=== PATIENT | male | born 1980 | race African-American/Black ===

== ENCOUNTER 2021-09-13 20:50 | Emergency (ER) | payer SELFPAY ==
[~2021-09-13] VITALS: Ht 167.6 cm; Wt 100.0 kg
[2021-09-13 21:26] LABS: BASO % 0.3 % (0.0-2.0); EOS # 0.3 K/mm3 (0.0-0.7); GRAN # 2.9 K/mm3 (1.4-6.5); GRAN % 45.3 % (42.2-75.2); HEMATOCRIT 41.4 % (42.0-52.0); HEMOGLOBIN 14.2 g/dl (13.5-18.0); LYMPH # 2.7 K/mm3 (1.2-3.4); MEAN CELL VOLUME 85 fl (80.0-100.0); MEAN CORPUSCULAR HEMOGLOBIN 29 pg (27.0-31.0); MEAN CORPUSCULAR HGB CONC 34 g/dl (33.0-37.0); MEAN PLATELET VOLUME 9.1 fl (7.4-10.4); MONO # 0.5 K/mm3 (0.1-0.6); MONO % 7.2 % (1.7-9.3); PLATELET COUNT 224 K/mm3 (130-400); REDCELL DISTRIBUTION WIDTH-CV 12.5 % (11.5-14.5)
[2021-09-13 21:43] LABS: ALBUMIN 4.1 gm/dL (3.5-5.0); BILIRUBIN,TOTAL 0.5 mg/dL (0.2-1.2); CALCIUM 9.4 mg/dL (8.4-10.2); CREATININE, serum 1.15 mg/dL (0.72-1.25); POTASSIUM 3.9 mmol/L (3.5-4.5); TOTAL PROTEIN 7.8 gm/dL (6.2-8.1)
[2021-09-13 22:01] VITALS: BP 125/81; PULSE 68; TEMP 98.7
== END 2021-09-13 22:01 | disposition home or self-care (01) ==
LOC: COL.ER 20:50
PROVIDERS: Emergency Medicine
DX: R20.2 Paresthesia of skin (principal)

== ENCOUNTER 2021-10-07 09:04 | Emergency (ER) | payer SELFPAY ==
[~2021-10-07] VITALS: Ht 167.6 cm; Wt 102.3 kg
[2021-10-07 09:20] VITALS: TEMP 98.1
[2021-10-07 09:37] LABS: BASO % 0.2 % (0.0-2.0); EOS # 0.4 K/mm3 (0.0-0.7); EOS % 7.4 % (0-4.0); GRAN % 37.3 % (42.2-75.2); HEMOGLOBIN 14.7 g/dl (13.5-18.0); LYMPH # 2.4 K/mm3 (1.2-3.4); MEAN CELL VOLUME 83 fl (80.0-100.0); MEAN CORPUSCULAR HEMOGLOBIN 29 pg (27.0-31.0); MEAN CORPUSCULAR HGB CONC 35 g/dl (33.0-37.0); MEAN PLATELET VOLUME 8.9 fl (7.4-10.4); MONO # 0.5 K/mm3 (0.1-0.6); MONO % 9.7 % (1.7-9.3); PLATELET COUNT 227 K/mm3 (130-400); RED BLOOD COUNT 5.04 M/mm3 (4.20-5.60); REDCELL DISTRIBUTION WIDTH-CV 12.7 % (11.5-14.5)
[2021-10-07 09:54] LABS: ALANINE AMINOTRANSFERASE 26 U/L (0-55); ALBUMIN 4.6 gm/dL (3.5-5.0); ALKALINE PHOSPHATASE 80 U/L (40-150); ANION GAP 10 mmol/L (7-16); AST,SGOT 22 U/L (5-34); BILIRUBIN,TOTAL 0.7 mg/dL (0.2-1.2); BLOOD UREA NITROGEN 7 mg/dL (9-21); CALCIUM 9.7 mg/dL (8.4-10.2); CARBON DIOXIDE 25 mmol/L (22-29); CHLORIDE 104 mmol/L (98-107); GLUCOSE 146 mg/dL (70-99); POTASSIUM 3.3 mmol/L (3.5-4.5); SODIUM 139 mmol/L (136-145); TOTAL PROTEIN 8.3 gm/dL (6.2-8.1)
[2021-10-07 10:02] LABS: TROPONIN-I < 0.010 ng/mL (0.00-0.033)
[2021-10-07] MEDS ORDERED: PROTONIX 40MG T40 MG PO (13:14)
[2021-10-07 13:38] VITALS: BP 135/105; PULSE 75
== END 2021-10-07 13:38 | disposition home or self-care (01) ==
LOC: COL.ER 09:04
PROVIDERS: Emergency Medicine
DX: R07.9 Chest pain, unspecified (principal); E87.6 Hypokalemia
CPT/HCPCS: J7030

== ENCOUNTER → 2023-08-02 | Outpatient (CLI) | payer OTHER ==
[~2023-08-02] MED LIST: NORCO 325 MG-51 TAB PO; PROTONIX 40MG T40 MG PO
== END ==
LOC: COL.RAD 11:15
DX: K21.9 Gastro-esophageal reflux disease without esophagitis (principal); Z90.49 Acquired absence of other specified parts of digestive tract

== ENCOUNTER 2023-08-08 20:08 | Emergency (ER) | payer OTHER ==
[~2023-08-08] VITALS: Ht 167.6 cm; Wt 93.2 kg
[2023-08-08 20:19] VITALS: TEMP 98.1
[2023-08-08 20:40] LABS: BASO % 0.4 % (0.0-2.0); EOS # 0.2 K/mm3 (0.0-0.7); EOS % 2.3 % (0.0-4.0); GRAN # 2.9 K/mm3 (1.4-6.5); GRAN % 42.1 % (42.2-75.2); HEMATOCRIT 42.7 % (42.0-52.0); HEMOGLOBIN 14.6 g/dl (13.5-18.0); LYMPH # 3.1 K/mm3 (1.2-3.4); LYMPH % 45.9 % (20.0-51.0); MEAN CELL VOLUME 88 fl (80.0-100.0); MEAN CORPUSCULAR HEMOGLOBIN 30 pg (27-31); MEAN CORPUSCULAR HGB CONC 34 g/dl (33.0-37.0); MEAN PLATELET VOLUME 8.6 fl (7.4-10.4); MONO # 0.6 K/mm3 (0.1-0.6); MONO % 9.2 % (1.7-9.3); PLATELET COUNT 214 K/mm3 (130-400); RED BLOOD COUNT 4.86 M/mm3 (4.20-5.60)
[2023-08-08 20:55] LABS: ALANINE AMINOTRANSFERASE 36 U/L (0-55); ALBUMIN 4.5 gm/dL (3.5-5.0); ALKALINE PHOSPHATASE 75 U/L (40-150); ANION GAP 13 mmol/L (7-16); AST,SGOT 25 U/L (5-34); BILIRUBIN,TOTAL 0.6 mg/dL (0.2-1.2); BLOOD UREA NITROGEN 11 mg/dL (9-21); C-REACTIVE PROTEIN 0.07 mg/dL (0.00-0.50); CALCIUM 9.7 mg/dL (8.4-10.2); CARBON DIOXIDE 24 mmol/L (22-29); CHLORIDE 105 mmol/L (98-107); CREATININE, serum 1.27 mg/dL (0.72-1.25); GLUCOSE 125 mg/dL (70-99); LIPASE 72 U/L (8-78); POTASSIUM 3.7 mmol/L (3.5-4.5); SODIUM 142 mmol/L (136-145); TOTAL PROTEIN 7.9 gm/dL (6.2-8.1)
[2023-08-08 21:04] LABS: TROPONIN-I < 0.010 ng/mL (0.00-0.033)
[2023-08-08 21:05] LABS: COLLECTION METHOD CLEAN CATCH
[2023-08-08 21:13] LABS: PH 5.5 (5.0-8.5); URINE APPEARANCE Clear (CLEAR/HAZY); URINE BLOOD Negative (NEGATIVE); URINE COLOR Yellow (YELLOW); URINE GLUCOSE Negative (NEGATIVE); URINE KETONE Negative (NEGATIVE); URINE NITRATE Negative (NEGATIVE); URINE PROTEIN(semi-quant) Negative (NEGATIVE); URINE UROBILINOGEN 0.2 E.U/dL (0.2-1.0)
[2023-08-08 21:15] LABS: SQUAMOUS EPITHELIAL None Seen /hpf (0-10); URINE BACTERIA None Seen /hpf (NONE SEEN); URINE RBC 0-2 /hpf (0-2)
[2023-08-08 21:31] VITALS: BP 139/95; PULSE 84
== END 2023-08-08 21:31 | disposition home or self-care (01) ==
LOC: COL.ER 20:08
PROVIDERS: Nurse Practitioner Primary Care
DX: R10.13 Epigastric pain (principal); I10 Essential (primary) hypertension; Z87.19 Personal history of other diseases of the digestive system; Z90.49 Acquired absence of other specified parts of digestive tract

== ENCOUNTER 2023-12-29 08:23 | Emergency (ER) | payer OTHER ==
[~2023-12-29] VITALS: Ht 167.6 cm; Wt 97.7 kg
[2023-12-29 08:32] VITALS: TEMP 98.1
[2023-12-29] MEDS ORDERED: Mag/Al Hydrox/Simeth Susp 30 ML CUP PO ONE (09:30)
[2023-12-29] MEDS ORDERED: Pantoprazole 40 MG in NS 10 ML IV ONE (09:30)
[2023-12-29 09:50] LABS: BASO % 0.6 % (0.0-2.0); EOS # 0.2 K/mm3 (0.0-0.7); GRAN # 2.9 K/mm3 (1.4-6.5); GRAN % 58.4 % (42.2-75.2); HEMATOCRIT 42.5 % (42.0-52.0); HEMOGLOBIN 14.5 g/dl (13.5-18.0); LYMPH # 1.6 K/mm3 (1.2-3.4); LYMPH % 31.7 % (20.0-51.0); MEAN CELL VOLUME 86 fl (80.0-100.0); MEAN CORPUSCULAR HEMOGLOBIN 29 pg (27-31); MEAN CORPUSCULAR HGB CONC 34 g/dl (33.0-37.0); MEAN PLATELET VOLUME 8.9 fl (7.4-10.4); MONO # 0.3 K/mm3 (0.1-0.6); MONO % 5.1 % (1.7-9.3); PLATELET COUNT 236 K/mm3 (130-400); RED BLOOD COUNT 4.94 M/mm3 (4.20-5.60); REDCELL DISTRIBUTION WIDTH-CV 12.5 % (11.5-14.5)
[2023-12-29 10:09] LABS: ALANINE AMINOTRANSFERASE 29 U/L (0-55); ALBUMIN 3.9 gm/dL (3.5-5.0); ALKALINE PHOSPHATASE 63 U/L (40-150); ANION GAP 9 mmol/L (7-16); AST,SGOT 27 U/L (5-34); BILIRUBIN,TOTAL 0.7 mg/dL (0.2-1.2); BLOOD UREA NITROGEN 10 mg/dL (9-21); CALCIUM 9.6 mg/dL (8.4-10.2); CARBON DIOXIDE 30 mmol/L (22-29); CHLORIDE 102 mmol/L (98-107); CREATININE, serum 1.28 mg/dL (0.72-1.25); GLUCOSE 146 mg/dL (70-99); LIPASE 48 U/L (8-78); POTASSIUM 3.1 mmol/L (3.5-4.5); SODIUM 141 mmol/L (136-145); TOTAL PROTEIN 7.1 gm/dL (6.2-8.1)
[2023-12-29 10:20] LABS: TROPONIN-I < 0.010 ng/mL (0.00-0.033)
[2023-12-29 10:55] VITALS: BP 126/91; PULSE 66
== END 2023-12-29 10:55 | disposition home or self-care (01) ==
LOC: COL.ER 08:23
PROVIDERS: Emergency Medicine
DX: R10.13 Epigastric pain (principal); Z87.19 Personal history of other diseases of the digestive system
CPT/HCPCS: C9113